=== PATIENT | male | born 1985 | race Caucasian/White ===

== ENCOUNTER 2020-11-29 17:36 | Emergency (ER) | payer SELFPAY ==
[2020-11-29 18:23] LABS: HEMOGLOBIN 13.3 gm/dl (14.0-17.5); RED BLOOD COUNT 4.8 M/UL (4.20-5.50); WHITE BLOOD COUNT 15.2 K/UL (4.5-11.0)
[2020-11-29 18:36] LABS: BUN/CREATININE RATIO 12 (0-10)
[2020-11-29] MEDS ORDERED: ZOFRAN ODT 4 MG4 MG SL (18:45)
== END 2020-11-29 19:00 | disposition home or self-care (01) ==
LOC: ER1 17:36
PROVIDERS: Emergency Medicine
DX: R11.2 Nausea with vomiting, unspecified (principal); F17.290 Nicotine dependence, other tobacco product, uncomplicated
CPT/HCPCS: 80053; 83690; 85025; 96374; 99284; J2405; J7030